=== PATIENT | female | born 1980 | race Caucasian/White ===

== ENCOUNTER 2024-09-26 17:01 | Emergency (ER) | payer OTHER ==
[2024-09-26] MEDS ORDERED: NA CHLORIDE 0.9% 1,000 ML ONE (17:59)
[2024-09-26 18:24] LABS: Absolute Eosinophils 0.1 K/uL (0-0.5); Absolute Lymphocytes (CBC) 0.9 K/uL (0.7-4.9); Absolute Monocytes 1.1 K/uL (0.1-1.3); Absolute Neutrophil 3.6 K/uL (1.8-8.0); Basophils % 0.6 % (0-1.3); Hematocrit 40.2 % (36.0-45.0); Hemoglobin 13.9 g/dL (12.0-15.0); Lymphocytes % 15.7 % (15.3-44.8); MCH 33.4 pg (27.0-35.0); MCHC 34.5 g/dL (32.0-36.0); MCV 96.8 fL (80-100); MPV 8.4 fL (7.6-11.3); Monocytes % 19.9 % (3.3-12.3); Neutrophils % 62.8 % (41.7-73.7); Nucleated Red Blood Cells % 0.1 % (0-0); Platelets 288 thou/uL (152-406); RBC Red Blood Cell Count 4.16 M/uL (3.86-4.86); Red Cell Distribution Width 13.4 % (12.1-15.2)
[2024-09-26 18:44] LABS: ALT/SGPT 19 U/L (13-56); AST/SGOT 13 U/L (15-37); Albumin 3.5 g/dL (3.4-5.0); Albumin/Globulin Ratio 0.9 (1.1-1.8); Alkaline Phosphatase 58 U/L (45-117); Anion Gap 7.6 mEq/L (5.0-15.0); BUN Blood Urea Nitrogen 11 mg/dL (7-18); Bicarbonate 26 mEq/L (21-32); Glomerular Filtration Rate 88 ml/min (=/>90); Glucose Level 97 mg/dL (74-106); Lipase 42 U/L (13-75); Potassium 3.6 mEq/L (3.5-5.1); Protein, Total 7.5 g/dL (6.4-8.2); Sodium Level 136 mEq/L (136-145)
[2024-09-26 18:45] LABS: Bilirubin Total < 0.2 mg/dL (0.2-1.0)
--- NOTE | 2024-09-26 19:06 | EDPHYS ---
Physician Documentation [facility] Name: Richelle Waller Age: 44 yrs Sex: Female : 1980 Arrival Date: 09/26/2024 Time: 17:01 Bed 10 Private MD: LEYDI Physician Kenneth Liu HPI: 09/26 18:44 This 44 yrs old Female presents to ER via Ambulatory with complaints of Diarrhea. kb 18:44 Patient is a 44-year-old female who presents for diarrhea that started 2 days ago. kb States she feels like she is getting dehydrated because she has had so much diarrhea. Denies nausea, vomiting, fever, abdominal pain.. 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 - Infectious Disease History:: Denies. - Social history:: Smoking status: Reported history of juuling and/or vaping. ROS: 18:44 Constitutional: As per HPI kb Exam: 18:44 Constitutional: This is a well developed, well nourished patient who is awake, alert, kb and in no acute distress. Head/Face: Normocephalic, atraumatic. ENT: Moist Mucous membranes Cardiovascular: Regular rate Respiratory: Respirations even and unlabored. No increased work of breathing. Talking in full sentences Abdomen/GI: Soft, non-tender. No distention Skin: Warm, dry with normal turgor. Normal color. MS/ Extremity: Pulses equal, no cyanosis. Neurovascular intact. Full, normal range of motion. Neuro: Awake and alert, GCS 15, oriented to person, place, time, and situation. Vital Signs: 17:17 BP 116 / 94; Pulse 100; Resp 18; Temp 98.3; Pulse Ox 100% on R/A; db 18:00 BP 108 / 84; Pulse 98; Resp 17; Pulse Ox 100% ; me1 18:00 BP 109 / 71; Pulse 97; Resp 16; Temp 98.4; Pulse Ox 100% ; me1 MDM: 17:12 Medical Screening Exam initiated kb 18:44 Data reviewed: vital signs, nurses notes. kb 19:05 Differential diagnosis: Nonspecific abd pain, viral gastroenteritis, dehydration, kb abnormal electrolytes. Test considered but Not performed: CT: ct abd considered but pt has no abd pain or tenderness. Counseling: I had a detailed discussion with the patient and/or guardian regarding the historical points, exam findings, and any diagnostic results supporting the discharge/admit diagnosis, lab results, the need for outpatient follow up, a family practitioner, to return to the emergency department if symptoms worsen or persist or if there are any questions or concerns that arise at home. 09/26 17:23 Order name: CBC with Diff 09/26 17:23 Order name: CMP; Complete Time: 18:46 kb 09/26 17:23 Order name: Lipase; Complete Time: 18:46 kb 09/26 18:42 Order name: Manual Differential EDAZ 09/26 18:47 Order name: Stool Culture 09/26 18:47 Order name: CDIFF 09/26 17:23 Order name: IV Saline Lock; Complete Time: 18:18 kb 09/26 17:23 Order name: Labs collected and sent; Complete Time: 18:18 kb Administered Medications: 18:18 Drug: NS 0.9% IV 1000 ml IV at 1 bolus Per protocol; to be given as a bolus over 60 me1 minutes Route: IV; Rate: 1 bolus; Site: right antecubital; 19:26 Follow up: Response: No adverse reaction; IV Status: Completed infusion; IV Intake: me1 1000ml Disposition: 23:35 Co-signature as Attending Physician, Kenneth Liu MD I agree with the assessment and neymar plan of care. Disposition Summary: 09/26/24 19:06 Discharge Ordered Notes: Location: Home kb Condition: Stable kb Diagnosis - Diarrhea, unspecified kb Followup: kb - With: Emergency Department - When: As needed - Reason: Worsening of condition Followup: kb - With: Private Physician - When: 2 - 3 days - Reason: Recheck today's complaints, Continuance of care, Re-evaluation by your physician Discharge Instructions: - Discharge Summary Sheet kb - Food Choices to Help Relieve Diarrhea, Adult kb - Diarrhea, Adult, [id number] kb Forms: - Medication Reconciliation Form kb - Antibiotic Education kb - Prescription Opioid Use kb - Patient Portal Instructions kb - Leadership Thank You Letter kb Signatures: Dispatcher [employer] EDZuleyma Suarez, TOMBSTONE ERECTOR-C TOMBSTONE ERECTOR-CkKenneth Henderson MD MD cha Benton, Danielle, RN RN db Tiffany Claudio RN RN me1
--- NOTE | 2024-09-26 19:06 | ER ---
Nurse's Notes [facility] Name: Richelle Waller Age: 44 yrs Sex: Female : 1980 Arrival Date: 09/26/2024 Time: 17:01 Bed 10 Private MD: Diagnosis: Diarrhea, unspecified Presentation: 09/26 17:17 Chief complaint: Patient states: DIARRHEA SINCE YESTERDAY. DENIES NAUSEA. COMPLAINS OF db ABD PAIN. Coronavirus screen: Client denies travel out of the [place] in the last 14 days. At this time, the client does not indicate any symptoms associated with coronavirus-19. Ebola Screen: Patient negative for fever greater than or equal to 101.5 degrees Fahrenheit, and additional compatible Ebola Virus Disease symptoms Patient denies exposure to infectious person. Patient denies travel to an Ebola-affected area in the 21 days before illness onset. No symptoms or risks identified at this time. Initial Sepsis Screen: Does the patient meet any 2 criteria? No. Patient's initial sepsis screen is negative. Does the patient have a suspected source of infection? No. Patient's initial sepsis screen is negative. Risk Assessment: Do you want to hurt yourself or someone else? Patient reports no desire to harm self or others. Onset of symptoms was September 25, 2024. 17:17 Method Of Arrival: Ambulatory db 17:17 Acuity: KYRA 3 db Triage Assessment: 17:21 General: Appears in no apparent distress. comfortable, Behavior is calm, cooperative. db Pain: Complains of pain in abdomen. Neuro: Level of Consciousness is awake, alert, obeys commands, Oriented to person, place, time, situation. Respiratory: Airway is patent Respiratory effort is even, unlabored, Respiratory pattern is regular, symmetrical. GI: Abdomen is flat, non-distended, Reports lower abdominal pain, diarrhea, nausea. 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 - Infectious Disease History:: Denies. - Social history:: Smoking status: Reported history of juuling and/or vaping. Screenin:21 [facility] ED Fall Risk Assessment (Adult) History of falling in the last 3 months, me1 including since admission No falls in past 3 months (0 pts) Confusion or Disorientation No (0 pts) Intoxicated or Sedated No (0 pts) Impaired Gait No (0 pts) Mobility Assist Device Used No (0 pt) Altered Elimination No (0 pt) Score/Fall Risk Level 0 - 2 = Low Risk Maintained a safe environment, Provided non-skid footwear, Hourly rounding (assess needs \T\ fall precautionary measures) done. Abuse screen: Denies threats or abuse. Nutritional screening: No deficits noted. Tuberculosis screening: No symptoms or risk factors identified. Assessment: 18:21 General: Appears ill, well groomed, well developed, well nourished, Behavior is calm, me1 cooperative, appropriate for age, Reports DIARRHEA SINCE YESTERDAY. DENIES NAUSEA. COMPLAINS OF ABD PAIN. Pain: Complains of pain in abdomen Pain does not radiate. Pain currently is 6 out of 10 on a pain scale. Quality of pain is described as crampy, Pain began 1 day ago. Is continuous. Neuro: Level of Consciousness is awake, alert, obeys commands, Oriented to person, place, time, situation, Appropriate for age. Cardiovascular: Patient's skin is warm and dry. Respiratory: Airway is patent Respiratory effort is even, unlabored, Respiratory pattern is regular, symmetrical. GI: Abdomen is flat, Bowel sounds present X 4 quads. Reports lower abdominal pain, upper abdominal pain, diarrhea, since yesterday. : No signs and/or symptoms were reported regarding the genitourinary system. EENT: No signs and/or symptoms were reported regarding the EENT system. Derm: Skin is intact, is healthy with good turgor, Skin is pink, warm \T\ dry. Musculoskeletal: No signs and/or symptoms reported regarding the musculoskeletal system. Vital Signs: 17:17 BP 116 / 94; Pulse 100; Resp 18; Temp 98.3; Pulse Ox 100% on R/A; db 18:00 BP 108 / 84; Pulse 98; Resp 17; Pulse Ox 100% ; me1 18:00 BP 109 / 71; Pulse 97; Resp 16; Temp 98.4; Pulse Ox 100% ; me1 ED Course: 17:09 Patient arrived in ED. gl 17:12 Zuleyma Sterling FNP-C is PHCP. kb 17:12 Kenneth Liu MD is Attending Physician. kb 17:21 Triage completed. db 17:21 Arm band placed on right wrist. db 18:03 Tiffany Claudio, RN is Primary Nurse. me1 18:18 CBC with Diff Sent. me1 18:18 CMP Sent. me1 18:18 Lipase Sent. me1 18:18 Initial lab(s) drawn, by me, sent to lab. Inserted saline lock: 22 gauge in right me1 antecubital area, using aseptic technique. 18:21 Patient has correct armband on for positive identification. Bed in low position. Call me1 light in reach. Side rails up X2. Provided Education on: POC. Verbalized understanding.. Client placed on continuous cardiac and pulse oximetry monitoring. NIBP monitoring applied. Pulse ox on. NIBP on. 18:21 No provider procedures requiring assistance completed. me1 19:11 Stool Culture Sent. me1 19:11 CDIFF Sent. me1 19:31 IV discontinued, intact, bleeding controlled, No redness/swelling at site. Pressure me1 dressing applied. Administered Medications: 18:18 Drug: NS 0.9% IV 1000 ml IV at 1 bolus Per protocol; to be given as a bolus over 60 me1 minutes Route: IV; Rate: 1 bolus; Site: right antecubital; 19:26 Follow up: Response: No adverse reaction; IV Status: Completed infusion; IV Intake: me1 1000ml Medication: 18:21 VIS not applicable for this client. me1 Intake: 19:26 IV: 1000ml; Total: 1000ml. me1 Outcome: 19:06 Discharge ordered by . kb 19:31 Discharged to home ambulatory, me1 19:31 Condition: stable 19:31 Discharge instructions given to patient, Instructed on discharge instructions, follow up and referral plans. Demonstrated understanding of instructions, follow-up care, 19:31 Patient left the ED. me1 Addendum: 10/01/2024 10:53 Addendum: Culture Results: Positive stool culture. salmonella positive, patient l l1 verbalized understanding. Taking pro biotics and follow-up with PCP. Signatures: Zuleyma Sterling FNP-C FNP-Alexa Pulido RN RN 1 Abril Vazquez, RN RN db Tiffany Claudio RN RN me1 Renetta Han, Reg Reg gl Corrections: (The following items were deleted from the chart) 09/26 18:21 17:17 Chief complaint: Patient states: DIARRHEA SINCE YESTERDAY. DENIES NAUSEA. me1 COMPLAINS OF ABD PAIN db
[2024-09-26 19:38] LABS: Band Neutrophils 11 % (0-1); Differential Total Cells Count 100; Eosinophils 1 % (0-3); Lymphocytes 21 % (15-42); Monocytes 18 % (0-10); Reactive Lymphocytes 3 %; Segmented Neutrophils 46 % (40-80)
[2024-09-26 19:39] LABS: Blood Morphology Comment NOT SEEN (NOT SEEN); Platelet Estimate ADEQ
[2024-09-26 20:28] VITALS: O2SAT 100
[2024-09-26 20:30] VITALS: BP 109/71; TEMP 98.4
[2024-09-26 21:00] LABS: C.diff Antigen/Toxin Ag neg : Tox neg (NEG : NEG); CDIFF INTERNAL NEG CONTROL White Background (WHITE BKGD); STOOL CONSISTENCY Liquid/Semi-Solid
== END 2024-09-26 19:31 | disposition home or self-care (01) ==
LOC: ER 17:01
DX: R19.7 Diarrhea, unspecified (principal)
CPT/HCPCS: 87045; 85025; 36415; 87046; 87324; 83690; 80053; 96360; 99284; J7030